=== PATIENT | female | born 1990 | race Caucasian/White ===

== ENCOUNTER 2018-02-02 08:11 | Outpatient (CLI) | payer MEDICAID ==
[2018-02-02 08:44] LABS: BASOPHILS # (AUTO) 0.1 10^3/uL (0.0-0.1); BASOPHILS % (AUTO) 0.8 %; EOSINOPHILS # (AUTO) 0.2 10^3/uL (0.0-0.7); EOSINOPHILS % (AUTO) 2.7 %; HGB - HEMOGLOBIN 14.1 g/dL (12.0-16.0); LYMPHOCYTES # (AUTO) 1.7 10^3/uL (1.5-3.5); LYMPHOCYTES % (AUTO) 24.8 %; MEAN CORPUSCULAR HEMOGLOBIN 30.1 pg (27.0-31.0); MEAN CORPUSCULAR VOLUME 88.8 fL (81.0-99.0); MONOCYTES # (AUTO) 0.7 10^3/uL (0.0-1.0); MONOCYTES % (AUTO) 10.4 %; NEUTROPHILS # (AUTO) 4.3 10^3/uL (1.5-6.6); NEUTROPHILS % (AUTO) 61.3 %; PLT - PLATELET COUNT 189 10^3/uL (130-450); RED BLOOD COUNT 4.68 10^6/uL (4.20-5.40); RED CELL DISTRIBUTION WIDTH 13.3 % (12.0-15.0)
[2018-02-02 09:22] LABS: HB2 TOTAL 15.2 g/dL; HEMOGLOBIN A1C 0.47 g/dL
[2018-02-02 09:30] LABS: CHOLESTEROL 186 mg/dL; GLUCOSE,FASTING 86 mg/dL (70-100); HDL CHOLESTEROL 63 mg/dL; LDL CHOLESTEROL,CALCULATED 105 mg/dL; LDL/HDL RATIO 1.7 (<4.4); VLDL CHOLESTEROL 18 mg/dL
[2018-02-02 09:41] LABS: THYROID STIMULATING HORMONE 2.74 uIU/mL (0.34-5.60)
[2018-02-02 09:43] LABS: FREE T4 (FREE THYROXINE) 0.8 ng/dL (0.58-1.64)
[2018-02-02 09:47] LABS: PROLACTIN 16.56 ng/mL
[2018-02-02 10:09] LABS: FOLLICLE STIMULATING HORMONE 5.79 mIU/mL
== END 2018-02-02 08:12 | disposition home or self-care (01) ==
LOC: LAB 08:11
PROVIDERS: ATTEND Obstetrics & Gynecology
DX: E28.1 Androgen excess (principal); E28.2 Polycystic ovarian syndrome
CPT/HCPCS: 36415; 80061; 81599; 82947; 83001; 83036; 83721; 84143; 84146; 84270; 84402; 84403; 84439; 84443; 84481; 85025

== ENCOUNTER 2018-03-24 15:29 | Outpatient (CLI) | payer MEDICAID ==
[2018-03-24 19:25] LABS: ALBUMIN 4.4 g/dL (3.2-5.5); ALBUMIN/GLOBULIN RATIO 1.3 (1.0-2.2); ALKALINE PHOSPHATASE 74 IU/L (42-121); ALT ALANINE AMINOTRANSFERASE 19 IU/L (10-60); AST ASPARTATE AMINOTRANSFERASE 24 IU/L (10-42); BILIRUBIN,TOTAL 0.5 mg/dL (0.2-1.0); BUN - BLOOD UREA NITROGEN 9 mg/dL (6-20); CALCIUM 9.2 mg/dL (8.5-10.3); CARBON DIOXIDE - CO2 29 mmol/L (21-32); CHLORIDE 100 mmol/L (101-111); CREATININE 0.5 mg/dL (0.4-1.0); GFR - MDRD 147 (>89); GLUCOSE 77 mg/dL (70-100); SODIUM 137 mmol/L (135-145); TOTAL PROTEIN 7.9 g/dL (6.7-8.2)
[2018-03-24 19:30] LABS: BASOPHILS % (AUTO) 0.4 %; EOSINOPHILS # (AUTO) 0.2 10^3/uL (0.0-0.7); EOSINOPHILS % (AUTO) 1.7 %; HGB - HEMOGLOBIN 13.1 g/dL (12.0-16.0); LYMPHOCYTES # (AUTO) 1.6 10^3/uL (1.5-3.5); LYMPHOCYTES % (AUTO) 15.9 %; MEAN CORPUSCULAR HEMOGLOBIN 29.9 pg (27.0-31.0); MEAN CORPUSCULAR HGB CONC 33.5 g/dL (32.0-36.0); MEAN CORPUSCULAR VOLUME 89.4 fL (81.0-99.0); MEAN PLATELET VOLUME 9.1 fL (7.9-10.8); MONOCYTES # (AUTO) 1.3 10^3/uL (0.0-1.0); MONOCYTES % (AUTO) 12.3 %; NEUTROPHILS # (AUTO) 7.1 10^3/uL (1.5-6.6); NEUTROPHILS % (AUTO) 69.7 %; PLT - PLATELET COUNT 214 10^3/uL (130-450); RED BLOOD COUNT 4.39 10^6/uL (4.20-5.40); RED CELL DISTRIBUTION WIDTH 13.2 % (12.0-15.0); WHITE BLOOD COUNT 10.2 x10^3/uL (4.8-10.8)
[2018-03-24 19:41] LABS: THYROID STIMULATING HORMONE 2.99 uIU/mL (0.34-5.60)
[2018-03-24 19:52] LABS: FOLATE 22.96 ng/mL (5.90 - >24.8)
== END 2018-03-24 15:30 | disposition home or self-care (01) ==
LOC: LAB.N 15:29
PROVIDERS: ATTEND Nurse Practitioner
DX: R53.83 Other fatigue (principal); R06.02 Shortness of breath; R19.7 Diarrhea, unspecified; E55.9 Vitamin D deficiency, unspecified
CPT/HCPCS: 36415; 80053; 82306; 82607; 82746; 84443; 85025

== ENCOUNTER 2018-05-11 15:23 | Outpatient (CLI) | payer MEDICAID | END 2018-05-11 23:59 | LOC: LAB.R 15:23 | PROVIDERS: ATTEND Obstetrics & Gynecology | DX: N76.0 Acute vaginitis (principal) | CPT/HCPCS: 87480; 87510; 87660 ==

== ENCOUNTER 2018-07-03 12:39 | Outpatient (CLI) | payer MEDICAID ==
[2018-07-03 20:00] LABS: H. PYLORIS ANTIGEN STL NEGATIVE (Negative)
== END 2018-07-03 12:40 | disposition home or self-care (01) ==
LOC: LAB.N 12:39
PROVIDERS: ATTEND Nurse Practitioner
DX: K29.50 Unspecified chronic gastritis without bleeding (principal); R19.7 Diarrhea, unspecified; K21.9 Gastro-esophageal reflux disease without esophagitis
CPT/HCPCS: 82274; 87045; 87046; 87177; 87209; 87338

== ENCOUNTER 2018-07-31 14:27 | Outpatient (CLI) | payer MEDICAID | END 2018-07-31 14:28 | disposition home or self-care (01) | LOC: LAB.R 14:27 | PROVIDERS: ATTEND Obstetrics & Gynecology | DX: R30.0 Dysuria (principal) | CPT/HCPCS: 87086 ==

== ENCOUNTER 2018-08-29 11:34 | Outpatient (CLI) | payer MEDICAID ==
[2018-08-29 12:35] LABS: HCG UR QUAL NEGATIVE
== END 2018-08-29 11:35 | disposition home or self-care (01) ==
LOC: LAB 11:34
PROVIDERS: ATTEND Obstetrics & Gynecology
DX: Z01.812 Encounter for preprocedural laboratory examination (principal); Z30.2 Encounter for sterilization
CPT/HCPCS: 81025

== ENCOUNTER 2018-08-30 09:15 | Day surgery (SDC) | payer MEDICAID ==
--- NOTE | 2018-08-29 14:50 | PREOP HISTORY & PHYSICAL ---
DATE OF ADMISSION: 08/29/2018 Physician: Sammi Allan DO FACOG IDENTIFICATION: A 27-year-old G0. HISTORY OF PRESENT ILLNESS: Safia presents today to [email or web address] for a preoperative visit. She has been scheduled for an elective laparoscopic bilateral salpingectomy for permanent sterilization. She presents today accompanied by her mother, Abi Dueñas. I have been seeing Safia for quite a while and she, on multiple occasions, has verbalized to me her desire for permanent sterilization. I first met Safia on 07/14/2014. Safia has decided to finally proceed to a permanent sterilization on 03/31/2018. Permanent sterilization consent had been signed. I discussed with Safia the risks, benefits, alternatives, indications, and expectations of a bilateral laparoscopic bilateral salpingectomy. Safia understands their are intrinsic risks of hemorrhage, infection, and damage to surrounding organs. With respect to damage to surrounding organs, this may include but is not limited to an inadvertent laceration, cauterization or ligation of the adjacent intestines, ureters, and bladder. Furthermore, with this surgery, Safia understands that she will no longer be able to have children. Safia knows that there is an intrinsic tubal failure rate of less 1%. Should she feel that she is after the surgery she is to contact me immediately, as she has increased risk for ectopic . Safia understands that there are different forms of contraception available to her, which include but are not limited to control pill, the patch, NuvaRing, Nexplanon, and IUDs. After all of Safia's questions were answered to her satisfaction, she verbalized her desire to proceed with surgery. Consent forms have been signed. Currently, Safia is doing well. Denies any nausea, vomiting, fevers, chills, diarrhea, or constipation. PAST MEDICAL HISTORY 1. In 2006, Shah sarcoma and underwent chemotherapy x 10 months. 2. Depression. 3. Cystic acne. 4. Arthritis. 5. Back pain. PAST SURGICAL HISTORY: Right fibula for Shah sarcoma. ALLERGIES: NO KNOWN DRUG ALLERGIES. MEDICATIONS: Depo-Provera every 3 months. SOCIAL HISTORY: She denies any tobacco or alcohol use, social marijuana. Safia is currently working at [employer] and likes to be involved at the [employer]. PAST OBSTETRIC HISTORY: Nulligravida PAST GYNECOLOGIC HISTORY: She denies abnormal Pap smears or sexually transmitted diseases. Her 01/31/2018 Pap smear was negative, as well as a screen was negative. Safia does have a history of heavy irregular menstrual bleeding. She is currently on Depo-Provera for control of her menses. [facility] records have shown following Pap smears: 01/25/2013 HPV 16 and 18 are negative. Pap smear was low-grade squamous intraepithelial lesion. GC/CT were both negative. On 04/05/2013, cervical biopsy showed no dysplasia. The ECC was no dysplasia. Colposcopy showed a large area of acetowhite area in the cervix. Colposcopy, 01/22/2012, with ECC negative and cervical biopsy with RA 1. A 12/2011 Pap smear was low-grade squamous intraepithelial lesion. Safia does have a history, in 2012, of a self-resolved left breast mass. FAMILY HISTORY: Mother had ovarian cancer at age 35, reportedly stage III unknown type of carcinoma. PHYSICAL EXAMINATION: VITAL SIGNS: Weight is 165 pounds, height is 61 inches, BMI 31, blood pressure 114/76. GENERAL: Safia is a well-developed, well-nourished, female in no apparent distress. She is alert and oriented x3. HEENT: Within normal limits. She does have acne and is hirsute. CARDIOVASCULAR: Regular, no murmurs or rubs. LUNGS: Lungs are clear to auscultation bilaterally. ABDOMEN: Soft, nontender. No peritoneal signs. ASSESSMENT 1. A 27-year-old G0. 2. Desires permanent sterilization. PLAN 1. Safia has signed consent forms for permanent sterilization. 2. Safia is to get a urine hCG today in preparation for tomorrow's surgery. 3. Safia has been counseled to take ibuprofen and acetaminophen as her main form of pain control. She has been given an additional prescription for Vicodin for any breakthrough pain that she may experience. 4. Safia is to call me should she have any worsening fevers, chills, abdominal pain, or vaginal bleeding after surgery. 5. Safia is to see me in 2 weeks at [facility] for a routine postoperative visit. 6. Safia states that she is being worked up for IBS and will shortly receive an EGD. We will get a copy of laparoscopic photos for her GI physician for more information. TD: 08/29/2018 12:46 [email or web address]
[~2018-08-30 09:15] MED LIST: CELECOXIB 100 MG CAPSULE PO ONE
[2018-08-30] MEDS ORDERED: LACTATED RINGERS 1,000 ML IV ONE ×2 (09:38→12:07)
[2018-08-30] MEDS ORDERED: BUPIVACAINE 0.5%-EPI 1:200000 PF 30 ML VIAL ONE (10:17)
--- NOTE | 2018-08-30 10:35 | ANESTHESIA ---
Pre-Anesthesia VS, & Labs - Diagnosis Desires permanent sterilization - Procedure Laparoscopic bilateral salpingectomy Vital Signs: Temp Pulse Resp BP Pulse Ox 36.6 C 110 H 16 121/77 97 08/30/18 09:21 08/30/18 09:21 08/30/18 09:21 08/30/18 09:21 08/30/18 09:21 Height 5 ft 3 in Weight (kg) 73.3 kg - NPO >8 hours - Is Patient ?: No (negative test on 08/29/18) - Lab Results Lab results reviewed: Yes Home Medications and Allergies Home Medications: Ambulatory Orders Omeprazole 20 mg PO DAILY 08/29/18 busPIRone [Buspar] 10 mg PO BID 08/29/18 hydrOXYzine HCl [Hydroxyzine HCl] 2.5 DAILY PM PRN 08/30/18 Omeprazole 20 mg PO DAILY 08/29/18 busPIRone [Buspar] 10 mg PO BID 08/29/18 hydrOXYzine HCl [Hydroxyzine HCl] 2.5 DAILY PM PRN 08/30/18 Allergies/Adverse Reactions: Allergies Allergy/AdvReac Type Severity Reaction Status Date / Time drospirenone Allergy Unknown Verified 08/29/18 11:48 [From Gavi (28)] ethinyl estradiol Allergy Unknown Verified 08/29/18 11:48 [From Gavi (28)] lorazepam [From Ativan] Allergy Unknown Verified 08/29/18 11:48 milk Allergy Unknown Verified 08/29/18 11:48 wheat AdvReac Unknown Verified 08/29/18 11:48 Anes History & Medical History - Anesthetic History Anesthesia Complications: reports: No previous complications Family history of Anesthesia Complications: Denies Family history of Malignant Hyperthermia: Denies - Medical History Cardiovascular: reports: None Pulmonary: reports: None Gastrointestinal: reports: GERD, Chronic diarrhea, Chronic constipation Urinary: reports: None Neuro: reports: None Musculoskeletal: reports: Other (History of Shah sarcoma) Endocrine/Autoimmune: reports: None Blood Disorders: reports: None Skin: reports: None Smoking Status: Never smoker Psychosocial: reports: Depression, Anxiety, Cannabis - Surgical History Eyes Ears Nose Throat (EENT): Other Orthopedic: Other (Left leg) Exam General: Alert, Oriented x3, Cooperative, No acute distress Dental: WNL Mouth Openin Fingerbreadth Mallampati classification: I Thyromental Distance: 4-6 cm Respiratory: Lungs clear, Normal breath sounds, No respiratory distress, No accessory muscle use Cardiovascular: Regular rate, Normal S1, Normal S2, No murmurs Mental/Cognitive Status: Alert/Oriented X3, Normal for patient Plan Anesthesia Type: General Consent for Procedure(s) Verified and Reviewed: Yes Code Status: Attempt Resuscitation ASA classification: 2-Mild systemic disease Is this case an emergency?: No
[2018-08-30] MEDS ORDERED: BUPIVACAINE 0.5%-EPI 1:200000 PF 30 ML VIAL SUBQ ONE ×2 (10:52)
[2018-08-30] MEDS ORDERED: KETOROLAC 30 MG/ML VIAL IVP ONE (11:15)
[2018-08-30] MEDS ORDERED: ROCURONIUM 50 MG/5 ML VIAL IVP ONE (11:15)
[2018-08-30] MEDS ORDERED: MIDAZOLAM 2 MG/2 ML VIAL IVP ONE (11:15)
[2018-08-30] MEDS ORDERED: fentaNYL 100 MCG/2 ML VIAL IVP ONE (11:15)
[2018-08-30] MEDS ORDERED: NEOSTIGMINE 1 MG/1 ML 10 ML MDV IVP ONE (11:15)
[2018-08-30] MEDS ORDERED: PROPOFOL 200 MG/20 ML VIAL IVP ONE (11:15)
[2018-08-30] MEDS ORDERED: GLYCOPYRROLATE 1 MG/5 ML VIAL IVP ONE (11:15)
[2018-08-30] MEDS ORDERED: DEXAMETHASONE 4 MG/ML VIAL IVP ONE (11:15)
[2018-08-30] MEDS ORDERED: PHENYLEPHRINE 50 MG/5 ML VIAL IV ONE (11:15)
[2018-08-30] MEDS ORDERED: LIDOCAINE-MPF 2% 5 ML VIAL IM ONE (11:15)
[2018-08-30] MEDS ORDERED: ONDANSETRON 4 MG/2 ML VIAL IVP ONE (11:15)
--- NOTE | 2018-08-30 12:15 | OPERATIVE REPORT ---
Operative Report - Other Other Information/Narrative: Date of Operation: 08/30/2018 Surgeon: Sammi Allan DO FACOG Pharmaceutical Laboratory Technician: None Ruby Developer: Asher Leigh CRNA Anesthesia: GET Pre-Op Dx: 1. 27 yo G0 2. Desired permanent sterilization Post-Op Dx: 1. 27 yo G0 2. Desired permanent sterilization 3. Endometriosis Procedure: 1. Laparoscopic bilateral salpingectomy 3. Excisional biopsy of posterior cul-de-sac peritoneum Findings: 1. Normal uterus, fallopian tubes and ovaries 2. Endometriotic implants in the posterior cul-de-sac 3. Normal liver edge, appendix. Specimens: 1. Bilateral fallopian tubes 2. Peritoneal biopsies x 2 Drains: None EBL: 3 mL Complications: None OP Note Dictation #: [id number]
[2018-08-30] MEDS ORDERED: ONDANSETRON 4 MG/2 ML VIAL ONE (12:16)
[2018-08-30] MEDS ORDERED: HYDROcod/ACETAM 5/325 MG TABLET PO PRN (12:26)
[2018-08-30] MEDS ORDERED: LORazepam 2 MG/ML VIAL IVP PRN (12:26)
[2018-08-30] MEDS ORDERED: ONDANSETRON 4 MG/2 ML VIAL IVP PRN (12:26)
[2018-08-30] MEDS: HYDROmorphone 0.5 MG/0.5 ML SYRINGE IVP PRN ×2 (12:38→12:44)
[2018-08-30] MEDS ORDERED: HYDROcod/ACETAM 5/325 MG TABLET ONE (13:19)
--- NOTE | 2018-08-30 13:33 | OPERATIVE REPORT ---
DATE OF OPERATION: 08/30/2018 SURGEON: Sammi Allan DO, OVIDIO EXECUTIVE STEWARD: None. AUTO CLUTCH SPECIALIST: Asher Leigh CRNA. ANESTHESIA: General endotracheal tube. PREOPERATIVE DIAGNOSES: 1. A 19-year-old G0. 2. Desired permanent sterilization. POSTOPERATIVE DIAGNOSES: 1. A 27-year-old G0. 2. Desired permanent sterilization. 3. Endometriosis. PROCEDURES: 1. Laparoscopic bilateral salpingectomy. 2. Excisional biopsy of posterior cul-de-sac peritoneum. FINDINGS: 1. Normal uterus, fallopian tubes, and ovaries. 2. Endometriotic implants in the posterior cul-de-sac. SPECIMENS: 1. Bilateral fallopian tubes. 2. Peritoneal biopsies x2. DRAINS: None. ESTIMATED BLOOD LOSS: 3 mL COMPLICATIONS: None. BRIEF HISTORY: This is a patient of [facility] who has verbalized to me her desire for permanent sterilization. I discussed with patient the risks, benefits, alternatives, and indications and expectations of a laparoscopic bilateral salpingectomy. Included in our discussions were the risk of infection, hemorrhage and damage to surrounding organs. With respect to damage to surrounding organs, this may include, but is not limited to an inadvertent laceration, cauterization or ligation of the adjacent intestines, bladder and ureters. Furthermore, with the surgery patient understands that she will no longer be able have children. She knows other options of control available to her including control pills, the patch, Depo-Provera, the NuvaRing, and the copper and hormone-based IUDs. Patient understands that there is an intrinsic tubal failure rate of less than 1%. After all questions were answered to her satisfaction, she verbalized her desire to proceed with surgery. Consent forms have been signed. OPERATION IN DETAIL: Patient was identified and consented, taken to the operating room where IV access was already in place. She was then given satisfactory general endotracheal tube anesthesia. Sequential compression devices were placed on lower extremities and turned on prior to induction of anesthesia. Patient was then prepped and draped in normal sterile fashion in the supine position. Her bladder was drained with In and Out catheter. A timeout was performed, which correctly identified the patient, site of the procedures and the procedures themselves. Three laparoscopic port sites were first identified in the lower abdomen. They were all 5 mm length. One in the subumbilical fold and the other two in the right and left lower quadrants. With respect to the lower quadrant incisions these were found by identifying the anterior superior iliac spine and then moving 2 fingerbreadths superior and then medially to those respective sides. All 3 sides were injected with 0.5% lidocaine with epinephrine. A total of 20 mL were used through the entire case. These incisions were redosed at the termination of the case. Stab incisions were made in then the laparoscopic port sites. A 5 mm Visiport trocar was then placed into the abdomen and under direct visualization of the camera. No trauma to intra-abdominal organs was noted. CO2 gas was then used to insufflate the abdomen. A satisfactory pneumoperitoneum was identified. Two other port sites were then placed under direct visualization of the camera into the abdomen. Again, no trauma to intra- abdominal organs was noted. Survey of the pelvis and abdomen revealed a normal liver edge. The appendix was also seen and was within normal limits. Inspection of the uterus, fallopian tubes, and ovaries revealed normal anatomy. There was, however, findings of endometriosis. There was one large area in the posterior cul-de-sac on the left side of the pelvis. A second area of 2-3 areas in the endometriosis and also in the posterior cul-de-sac closer to the right uterosacral ligament, but more on the right aspect of the cul-de-sac. Attention was then turned towards the right fallopian tube. The right tube was identified and followed to the fimbriated end. The fallopian tube was then excised with the LigaSure. Hemostasis was noted. In similar fashion, the left fallopian tube was identified and then excised using the LigaSure. Hemostasis was noted as well. At this point in time, I decided to excise the endometriosis given that patient has a history of chronic pelvic pain. The peritoneum was lifted up and then sharply excised. Hemostasis was noted at the 2 areas of excisional biopsy. At this point in time the procedure had been completed. All instruments were removed from the abdomen and the CO2 gas was allowed to egress into the atmosphere; thus, relieving the pneumoperitoneum. All 3 trocar sites were then closed with a single subcutaneous stitch of 4-0 Monocryl. Dermabond was then placed on top of the incisions. All sponge, lap and needle counts were correct x 2 as per RN report. Patient tolerated the procedure well and taken back to recovery room in stable condition. She will be discharged to home later today and after postoperative criteria are met. TD: 08/30/2018 12:38 YOGESH
[2018-08-30 13:38] VITALS: BP 104/72
== END 2018-08-30 09:16 | disposition home or self-care (01) ==
LOC: SDS 09:15
PROVIDERS: ATTEND Obstetrics & Gynecology
PROC: 0UBF8ZZ Excision of Cul-de-sac, Via Natural or Artificial Opening Endoscopic (ICD-10-PCS; 2018-08-30)
PROC: 0UB74ZZ Excision of Bilateral Fallopian Tubes, Percutaneous Endoscopic Approach (ICD-10-PCS; principal; 2018-08-30 10:15)
DX: Z30.2 Encounter for sterilization (principal); N80.3 Endometriosis of pelvic peritoneum
CPT/HCPCS: 58661; 58662; A9270; J1170; J7120

== ENCOUNTER 2019-02-13 08:00 | Outpatient (CLI) | payer MEDICAID | END 2019-02-13 23:59 | disposition home or self-care (01) | LOC: LAB.R 08:00 | PROVIDERS: ATTEND Nurse Practitioner Obstetrics & Gynecology | DX: N76.0 Acute vaginitis (principal) | CPT/HCPCS: 87480; 87510; 87660 ==

== ENCOUNTER 2019-10-04 10:49 | Outpatient (CLI) | payer MEDICAID ==
--- NOTE | 2019-10-04 21:49 | Ultrasound Report ---
Reason: ENDOMETRIOSIS, PELVIC PAIN Procedure Date: 10/04/2019 Accession Number: [id number] / [id number] Procedure: US - Pelvic w/Transvaginal CPT Code: Final Report FULL RESULT: EXAM: PELVIC ULTRASOUND EXAM DATE: 10/04/2019 11:07 AM. CLINICAL HISTORY: ENDOMETRIOSIS, PELVIC PAIN. COMPARISON: Previous exam of 02/12/2008. TECHNIQUE: Realtime transabdominal pelvic scan performed to identify the uterus and adnexa and as an overview of other pelvic structures, followed by transvaginal scan to provide greater detail of the uterus and adnexa, with static image documentation. FINDINGS: Uterus: 8.2 x 3.1 x 4.1 cm, volume 54.5 cc. Anteverted position. Normal overall size and echotexture. Masses: None. Endometrium: 9.3 mm. Normal. Cervix: Unremarkable. Right Ovary: 2.1 x 2.0 x 3.1 cm, volume 6.8 cc. Normal echotexture and blood flow. Left Ovary: 1.7 x 1.7 x 1.6 cm, volume 2.4 cc. Normal echotexture and blood flow. Free Fluid: None. Other: None. IMPRESSION: Grossly unremarkable exam. RADIA
== END 2019-10-04 10:50 | disposition home or self-care (01) ==
LOC: DI 10:49
PROVIDERS: ATTEND Obstetrics & Gynecology
DX: R10.2 Pelvic and perineal pain (principal)
CPT/HCPCS: 76830; 76856

== ENCOUNTER 2020-01-29 10:57 | Outpatient (CLI) | payer MEDICAID ==
[2020-01-29 11:12] LABS: BASOPHILS % (AUTO) 0.4 %; EOSINOPHILS # (AUTO) 0.1 10^3/uL (0.0-0.7); EOSINOPHILS % (AUTO) 2.5 %; HGB - HEMOGLOBIN 14.8 g/dL (12.0-16.0); LYMPHOCYTES # (AUTO) 1.4 10^3/uL (1.5-3.5); LYMPHOCYTES % (AUTO) 25.2 %; MEAN CORPUSCULAR HEMOGLOBIN 30.6 pg (27.0-31.0); MEAN CORPUSCULAR HGB CONC 34.2 g/dL (32.0-36.0); MEAN CORPUSCULAR VOLUME 89.5 fL (81.0-99.0); MEAN PLATELET VOLUME 10.2 fL (7.9-10.8); MONOCYTES # (AUTO) 0.6 10^3/uL (0.0-1.0); MONOCYTES % (AUTO) 10.5 %; NEUTROPHILS # (AUTO) 3.5 10^3/uL (1.5-6.6); PLT - PLATELET COUNT 213 10^3/uL (130-450); RED BLOOD COUNT 4.84 10^6/uL (4.20-5.40); RED CELL DISTRIBUTION WIDTH 12.4 % (12.0-15.0); WHITE BLOOD COUNT 5.7 x10^3/uL (4.8-10.8)
== END 2020-01-29 10:58 | disposition home or self-care (01) ==
LOC: LAB 10:57
PROVIDERS: ATTEND Obstetrics & Gynecology
DX: Z01.812 Encounter for preprocedural laboratory examination (principal); N80.9 Endometriosis, unspecified; R10.2 Pelvic and perineal pain; Z80.41 Family history of malignant neoplasm of ovary
CPT/HCPCS: 36415; 85025

== ENCOUNTER 2020-04-28 11:23 | Outpatient (CLI) | payer MEDICAID ==
[2020-04-28 11:37] LABS: BASOPHILS # (AUTO) 0.1 10^3/uL (0.0-0.1); BASOPHILS % (AUTO) 0.7 %; EOSINOPHILS # (AUTO) 0.2 10^3/uL (0.0-0.7); EOSINOPHILS % (AUTO) 3.1 %; HGB - HEMOGLOBIN 14.8 g/dL (12.0-16.0); LYMPHOCYTES # (AUTO) 2.1 10^3/uL (1.5-3.5); LYMPHOCYTES % (AUTO) 28.3 %; MEAN CORPUSCULAR HEMOGLOBIN 30.5 pg (27.0-31.0); MEAN CORPUSCULAR HGB CONC 34.3 g/dL (32.0-36.0); MEAN CORPUSCULAR VOLUME 88.9 fL (81.0-99.0); MEAN PLATELET VOLUME 10.8 fL (7.9-10.8); MONOCYTES # (AUTO) 0.7 10^3/uL (0.0-1.0); MONOCYTES % (AUTO) 9.6 %; NEUTROPHILS # (AUTO) 4.3 10^3/uL (1.5-6.6); PLT - PLATELET COUNT 248 10^3/uL (130-450); RED BLOOD COUNT 4.86 10^6/uL (4.20-5.40); RED CELL DISTRIBUTION WIDTH 12.2 % (12.0-15.0); WHITE BLOOD COUNT 7.4 x10^3/uL (4.8-10.8)
== END 2020-04-28 11:24 | disposition home or self-care (01) ==
LOC: LAB 11:23
PROVIDERS: ATTEND Obstetrics & Gynecology
DX: Z01.812 Encounter for preprocedural laboratory examination (principal); Z20.828 Contact with and (suspected) exposure to other viral communicable diseases; N80.9 Endometriosis, unspecified; R10.2 Pelvic and perineal pain; Z80.41 Family history of malignant neoplasm of ovary
CPT/HCPCS: 36415; 81599; 85025

== ENCOUNTER 2020-04-30 17:16 | Day surgery (SDC) | payer MEDICAID ==
[2020-04-30 11:12] LABS: HCG UR QUAL NEGATIVE
--- NOTE | 2020-04-30 11:29 | ANESTHESIA ---
Pre-Anesthesia VS, & Labs - Diagnosis endometriosis, pelvic pain, family history of ovarian cancer in first degree relative. - Procedure total laparoscopic hysterectomy Vital Signs: Temp Pulse Resp BP Pulse Ox 36.6 C 110 H 18 140/93 H 97 04/30/20 10:55 04/30/20 10:55 04/30/20 10:55 04/30/20 10:55 04/30/20 10:55 Height 5 ft 3.5 in Weight (kg) 95 kg - NPO >8 hours - Is Patient ?: No Home Medications and Allergies Omeprazole 20 mg PO DAILY PRN 08/29/18 Albuterol Sulfate [Proair Hfa Inhaler] 1 - 2 puffs INH Q4H PRN 01/29/20 Spironolactone 50 mg PO DAILY 01/29/20 Aspirin [Aspirin EC] 325 mg PO ONCE PRN 04/28/20 Multivitamin 1 each PO DAILY 04/28/20 Sertraline [Zoloft] 50 mg PO DAILY 04/28/20 Allergies/Adverse Reactions: Allergies Allergy/AdvReac Type Severity Reaction Status Date / Time drospirenone Allergy Unknown Verified 08/29/18 11:48 [From Gavi (28)] ethinyl estradiol Allergy Unknown Verified 04/30/20 10:59 [From Gavi (28)] lorazepam [From Ativan] Allergy Unknown Verified 08/29/18 11:48 milk Allergy Unknown Verified 08/29/18 11:48 wheat AdvReac Unknown Verified 08/29/18 11:48 Anes History & Medical History - Medical History Cardiovascular: reports: None Pulmonary: reports: None Gastrointestinal: reports: GERD (controlled with medication), Ulcers, Other Urinary: reports: None Neuro: reports: None Musculoskeletal: reports: Chronic back pain Endocrine/Autoimmune: reports: None Blood Disorders: reports: None Skin: reports: None Smoking Status: Never smoker Psychosocial: reports: Depression, Anxiety, Other (PTSD) Other Past Medical History: History of mina sarcoma - Surgical History Gynecologic: Other (bilateral salpingectomy and excision of endometriosis) Orthopedic: Other (fibula excision for mina sarcoma) Exam General: Alert, Oriented x3, Cooperative, No acute distress Dental: WNL Mouth Openin Fingerbreadth Neck Mobility: Normal Mallampati classification: I Thyromental Distance: 4-6 cm Respiratory: Lungs clear, Normal breath sounds, No respiratory distress, No accessory muscle use Cardiovascular: Regular rate, Normal S1, Normal S2, No murmurs Mental/Cognitive Status: Alert/Oriented X3, Normal for patient Plan Anesthesia Type: General Consent for Procedure(s) Verified and Reviewed: Yes Code Status: Attempt Resuscitation ASA classification: 2-Mild systemic disease Is this case an emergency?: No
[2020-04-30] MEDS: HYDROmorphone 1 MG/ML CARPUJECT ONE ×2 (16:35→16:40)
[~2020-04-30 17:16] MED LIST changes: +ACETAMINOPHEN 1,000 MG/100 ML 100 ML IV ONE; +BUPIVACAINE 0.25% PF 30 ML VIAL ONE; +BUPIVACAINE 0.25% PF 30 ML VIAL SUBQ ONE; +CEFAZOLIN SODIUM IN 0.9 % NACL 2 GM/100 ML BAG IV ONE; +DEXAMETHASONE 4 MG/ML VIAL IVP ONE; +GABAPENTIN 400 MG CAPSULE ONE; +GLYCOPYRROLATE 1 MG/5 ML VIAL IVP ONE; +KETAMINE 500 MG/10 ML VIAL IVP ONE; +KETOROLAC 30 MG/ML VIAL IVP ONE; +LACTATED RINGERS 1,000 ML IV ONE; +LIDOCAINE-MPF 2% 5 ML VIAL IM ONE; +METHYLENE BLUE 0.5% 50 MG/10 ML AMPULE IR ONE; +METHYLENE BLUE 0.5% 50 MG/10 ML AMPULE ONE; +MIDAZOLAM 2 MG/2 ML VIAL IVP ONE; +NEOSTIGMINE 1 MG/1 ML 10 ML MDV IVP ONE; +ONDANSETRON 4 MG/2 ML VIAL IVP ONE; +ONDANSETRON 4 MG/2 ML VIAL IVP PRN; +ONDANSETRON ODT 4 MG TABLET TL PRN; +PHENAZOPYRIDINE 100 MG TABLET PO ONE; +PROPOFOL 200 MG/20 ML VIAL IVP ONE; +ROCURONIUM 50 MG/5 ML VIAL IVP ONE; +SCOPOLAMINE PATCH TOP PRN; +fentaNYL 100 MCG/2 ML VIAL IVP ONE
[2020-04-30] MEDS ORDERED: HYDROmorphone 0.5 MG/0.5 ML SYRINGE IVP PRN (17:20)
--- NOTE | 2020-04-30 17:31 | OPERATIVE REPORT ---
Operative Report - General Procedure Date: 04/30/20 Planned Procedure: Total laparoscopic hysterectomy vs laparoscopic assisted vaginal hysterectomy and cystoscopy. Pre-Op Diagnosis: Chronic pelvic pain. Endometriosis with failed medical management Procedure Performed: Removal of Mirena IUD Total laparoscopic hysterectomy Cystoscopy Post Op Diagnosis: Same - Procedure Note Primary Surgeon: Lynn Foley MD Secondary Surgeon: Ritesh Chamberlain MD Anesthesia Provider: Patel Smith CRNA Anesthesia Technique: General ET tube Pathology: Uterus with cervix. IV Fluids (mL): 1,400 Estimated Blood Loss (mL): 10 Urine Output (mL): 200 Indications: Patient is a 29-year-old G0 with endometriosis with failed medical management and chronic pelvic pain. Patient presents today for definitive management with hysterectomy. She has had a Mirena IUD in place and her endometriosis remains problematic. She has no desire for childbearing and has already undergone a bilateral salpingectomy. Risk/benefits/alternatives reviewed and written informed consent was again confirmed. Findings: Normal-appearing uterus with bilateral fallopian tube surgically absent. N ormal-appearing appendix, gallbladder, liver edge. Bladder was thickly adherent to the lower uterine segment and small endometrial implant in the posterior cul-de-sac. Otherwise minimal endometriotic disease. Cystoscopy revealed intact bladder absent of any suture or surgical trauma and bilateral ureteral jets were noted post hysterectomy. Complications: none - Other Other Information/Narrative: Risks benefits and alternatives of the procedure were reviewed. Consent was again confirmed. Patient was brought to the operating room and underwent general anesthesia. She was placed in dorsal lithotomy position with legs resting in yellowfin stirrups. SCDs were in place and activated. Cefazolin 2 g IV was administered prior to start of procedure. She was prepped and draped in the usual sterile fashion. Surgical timeout was performed. Bimanual exam was performed. Sterile speculum was placed and Vcare uterine manipulator was placed, confirming that the inner cup was flush with the vaginal fornices. The base of the umbilicus was anesthetized with intradermal injection of 0.25% Marcaine. A 5 mm skin incision was made with a scalpel. A 5 mm blunt trocar was inserted under direct visualization using Bdayiport. Once the port was confirmed to be placed intraperitoneally, the abdomen was insufflated to 15 mmHg with CO2 gas Exploration of the abdomen and pelvis was confirmed that no injury was sustained with placement of the trocar. Two additional 5 mm ports were placed in the right and left lower quadrants, taking care to avoid the epigastric arteries, while under direct visualization via laparoscopic guidance. The abdomen was explored with the laparoscope, with findings as noted. The Fallopian tubes were noted to be surgically absent. The Round ligament on the left aspect of the uterus was sealed/transected/and divided. The uterine ovarian ligament was transected using the LigaSure bipolar device. A bladder flap was mobilized by dividing the round ligaments using the bipolar cutting forceps, and the peritoneum on the vesicouterine fold was incised to mobilize the bladder. Once the colpotomy ring was skeletonized and in position, the uterine arteries were sealed using the bipolar forceps at the level of the colpotomy ring. This was repeated on the right aspect of the uterus in the same manner. Because of the thick adhesions between the bladder and the lower uterine segment, the bladder was backfilled with 400 cc of methylene blue stained normal saline to better delineate the margins of the bladder. The bladder dissection was performed Over the colpotomy ring with the methylene blue dye infused. No spillage of methylene blue stained fluid was noted in the pelvis or abdomen. The bladder was again drained of the methylene blue stained normal saline. Colpotomy was performed using monopolar hook, resulting in separation of the uterus. The uterus was then delivered through the vagina. Attention was then turned to the vaginal cuff closure. The right lower quadrant port was removed and the incision was extended to accommodate a 10 mm port. The 5 mm port was replaced with a 10 mm port. V-Loc suture was passed throught the port. The vaginal cuff was closed with a running suture using V-Loc suture. Closure of the cuff was airtight and abdominal insufflation was maintained post closure. Good hemostasis was noted. We then turned our attention to the cystoscopic portion of the procedure. Renner catheter was removed and the cystoscope was inserted. Bladder was instilled with NS. A survey of the bladder showed no trauma or presence of suture in the bladder topography. Patient had been pretreated with pyridium. Vigorous ureteral jets were observed bilaterally. Cystoscope was removed after bladder was drained. Renner catheter was replaced We again returned to the abdominal surgical field after removing outer gloves. The abdomen remained insufflated. The vaginal cuff was visualized internally and noted to have good hemostasis. Toby Grace device was placed in the 10 mm port site, which was then closed under direct visualization. The abdomen was partially desufflated. Pedicles were observed under decreased pressure and good hemostasis was again confirmed. Abdomen was then completely desufflated. All instruments were removed from the abdomen. Skin was closed with interrupted subcuticular stitches using 4-0 Monocryl. Dermabond was applied over the suture sites. The final sponge needle and instrument counts were correct at completion of the procedure patient was awakened taken to the postanesthesia care unit in stable condition. Dr. Chamberlain assisted with suturing, completion of his side of the hysterectomy, cystoscopy.
[2020-04-30] MEDS: oxyCODONE 5 MG TABLET PO PRN ×2 (17:48→22:07)
[2020-04-30] MEDS: LACTATED RINGERS 1,000 ML IV SCH (17:49)
[2020-04-30] MEDS ORDERED: ALBUTEROL NEB 2.5 MG/3 ML INH PRN (18:23)
--- NOTE | 2020-04-30 20:13 | PROVIDER PROGRESS NOTE ---
Subjective - Prog Note Date Prog Note Date: 04/30/20 Prog Note Time: 20:11 - Subjective Subjective: Pain well managed. Had some irritation wiht Renner immediately postop but has not gotten used to it. Minimal bleeding. Tolerating small volume po. Objective - Vital Signs/Intake & Output Reviewed Vital Signs: Yes Vital Signs: Vital Signs x48h Temp Pulse Pulse Resp BP BP Pulse Ox 04/30/20 19:17 98.1 F 103 H 24 115/69 96 04/30/20 18:20 99.1 F 106 H 16 97 04/30/20 18:17 98.6 F 102 H 16 119/72 96 04/30/20 17:47 99.1 F 106 H 16 111/76 97 04/30/20 17:17 98 14 117/78 99 04/30/20 16:55 98.6 F 98 15 126/82 H 100 04/30/20 16:50 99.0 F 98 14 128/82 H 99 04/30/20 16:45 99.0 F 100 18 130/88 H 98 04/30/20 16:40 99.0 F 103 H 15 129/85 H 99 04/30/20 16:35 98.6 F 103 H 13 122/87 H 98 04/30/20 16:30 98.6 F 109 H 14 125/79 100 04/30/20 16:25 98.4 F 115 H 14 125/82 H 100 04/30/20 16:20 98.6 F 107 H 16 121/73 98 Intake & Output: Intake & Output 04/27/20 04/28/20 04/29/20 04/30/20 23:59 23:59 23:59 23:59 Intake Total 1800 Output Total 340 Balance 1460 - Objective General Appearance: positive: No acute distress Respiratory: positive: No respiratory distress Cardiovascular: positive: Other (RR- mild tachycardia) Abdomen: positive: Other (Soft and mildly distended, appropriately tender. Port sites CDI) Skin: positive: Color nml Extremities: positive: Non-tender, Other (SCDs in place and activated) Neurologic/Psychiatric: positive: Oriented x3 Comments/Other: peripad with scant discharge - Lab Results Other Labs: Lab Results x24hrs 04/30/20 Range/Units 11:04 Ur Specific [place] 1.015 (1.002-1.030) Urine HCG, Qual NEGATIVE Assessment/Plan - Problem List (1) S/P hysterectomy Impression: POD#0 s/p TLH/cysto Reviewed operative findings and reviewed high degree of bladder manipulation Recommended keeping Renner in place although willing to remove is patient is ok with risk of replacement Patient reports that discomfort has subsided and she is ok wiht overnight Renner use Tolerating po Pain well managed Encourage ambulation Will DC Renner in am when ambulatory Anticipate DC home in am
[2020-04-30] MEDS: ACETAMINOPHEN 500 MG TABLET PO SCH (20:24)
[2020-04-30] MEDS: DOCUSATE SODIUM 100 MG CAPSULE PO SCH (20:24)
[2020-04-30] MEDS: KETOROLAC 30 MG/ML VIAL IVP SCH (22:06)
[2020-04-30] MEDS: SIMETHICONE CHEW 80 MG TABLET PO SCH (22:07)
[2020-05-01] MEDS: oxyCODONE 5 MG TABLET PO PRN ×3 (01:50→16:00)
[2020-05-01 05:52] LABS: BASOPHILS % (AUTO) 0.1 %; HGB - HEMOGLOBIN 12.5 g/dL (12.0-16.0); LYMPHOCYTES % (AUTO) 9.6 %; MEAN CORPUSCULAR HEMOGLOBIN 29.6 pg (27.0-31.0); MEAN CORPUSCULAR HGB CONC 33.2 g/dL (32.0-36.0); MEAN CORPUSCULAR VOLUME 89.1 fL (81.0-99.0); MEAN PLATELET VOLUME 10.8 fL (7.9-10.8); MONOCYTES # (AUTO) 0.8 10^3/uL (0.0-1.0); MONOCYTES % (AUTO) 7.3 %; NEUTROPHILS # (AUTO) 8.8 10^3/uL (1.5-6.6); NEUTROPHILS % (AUTO) 82.6 %; PLT - PLATELET COUNT 225 10^3/uL (130-450); RED BLOOD COUNT 4.23 10^6/uL (4.20-5.40); RED CELL DISTRIBUTION WIDTH 12.4 % (12.0-15.0); WHITE BLOOD COUNT 10.6 x10^3/uL (4.8-10.8)
[2020-05-01] MEDS: ACETAMINOPHEN 500 MG TABLET PO SCH ×2 (06:05→13:55)
[2020-05-01] MEDS: KETOROLAC 30 MG/ML VIAL IVP SCH ×2 (06:05→12:39)
[2020-05-01] MEDS: SIMETHICONE CHEW 80 MG TABLET PO SCH ×2 (06:10→14:00)
[2020-05-01] MEDS: LACTATED RINGERS 1,000 ML IV SCH (06:12)
[2020-05-01] MEDS: DOCUSATE SODIUM 100 MG CAPSULE PO SCH (08:27)
[2020-05-01] MEDS ORDERED: ENOXAPARIN 40 MG/0.4 ML SYRINGE SUBQ SCH (09:00)
--- NOTE | 2020-05-01 12:55 | PROVIDER PROGRESS NOTE ---
Subjective - Prog Note Date Prog Note Date: 05/01/20 Prog Note Time: 11:00 - Subjective Subjective: Patient is up and ambulating, tolerating po. Pain is well managed with pain medications. Renner removed at 8 am, no yet voided. Objective - Vital Signs/Intake & Output Reviewed Vital Signs: Yes Vital Signs: Vital Signs x48h Temp Pulse Pulse Resp BP Pulse Ox 05/01/20 08:43 99.0 F 96 18 120/72 97 05/01/20 07:43 83 16 05/01/20 06:13 99.0 F 97 16 115/66 93 Intake & Output: Intake & Output 04/28/20 04/29/20 04/30/20 05/01/20 23:59 23:59 23:59 23:59 Intake Total 1800 1000 Output Total 615 1650 Balance 1185 -650 - Objective General Appearance: positive: No acute distress Respiratory: positive: No respiratory distress Cardiovascular: positive: Regular rate & rhythm Abdomen: positive: Non-tender, Other (POrt sites CDI. Umbilical dressing removed CDI. NT/ND/S) Skin: positive: Color nml Extremities: positive: Non-tender, No pedal edema Neurologic/Psychiatric: positive: Oriented x3 - Lab Results Fish Bones: 05/01/20 05:25 Other Labs: Lab Results x24hrs 05/01/20 Range/Units 05:25 WBC 10.6 (4.8-10.8) x10^3/uL RBC 4.23 (4.20-5.40) 10^6/uL Hgb 12.5 (12.0-16.0) g/dL Hct 37.7 (37.0-47.0) % MCV 89.1 (81.0-99.0) fL MCH 29.6 (27.0-31.0) pg MCHC 33.2 (32.0-36.0) g/dL RDW 12.4 (12.0-15.0) % Plt Count 225 (130-450) 10^3/uL MPV 10.8 (7.9-10.8) fL Neut # (Auto) 8.8 H (1.5-6.6) 10^3/uL Lymph # (Auto) 1.0 L (1.5-3.5) 10^3/uL Dickinson # (Auto) 0.8 (0.0-1.0) 10^3/uL Eos # (Auto) 0.0 (0.0-0.7) 10^3/uL Baso # (Auto) 0.0 (0.0-0.1) 10^3/uL Absolute Nucleated RBC 0.00 x10^3/uL Nucleated RBC % 0.0 /100WBC Assessment/Plan - Problem List (1) S/P hysterectomy Impression: POD#1 s/p TLH/cystoscopy Doing well but has yet to void Bladder scan performed and less than 100 cc accumulated in less than 3 hours UOP was 1650/8H prior to Renner removal OK to discharge once patient voids and has less than 50% PVR
[2020-05-01 16:12] VITALS: BP 129/78
== END 2020-05-01 16:15 | disposition home or self-care (01) ==
LOC: SDS 17:16 → MS2 17:16 → SDS 17:35 → MS2 17:35 → SDS 05-01 16:15
PROVIDERS: ATTEND Obstetrics & Gynecology
PROC: 0UT94ZZ Resection of Uterus, Percutaneous Endoscopic Approach (ICD-10-PCS; principal; 2020-04-30 11:45)
DX: N80.9 Endometriosis, unspecified (principal); R10.2 Pelvic and perineal pain; Z80.41 Family history of malignant neoplasm of ovary; Z85.830 Personal history of malignant neoplasm of bone; Z90.79 Acquired absence of other genital organ(s)
CPT/HCPCS: 36415; 58570; 81025; 85025; A9270; J0131; J0690; J1170; J1650; J7120

== ENCOUNTER 2020-07-07 11:59 | Outpatient (CLI) | payer MEDICAID ==
[2020-07-07 18:27] LABS: BASOPHILS % (AUTO) 0.6 %; EOSINOPHILS # (AUTO) 0.1 10^3/uL (0.0-0.7); EOSINOPHILS % (AUTO) 1.6 %; HGB - HEMOGLOBIN 14.3 g/dL (12.0-16.0); LYMPHOCYTES # (AUTO) 1.5 10^3/uL (1.5-3.5); LYMPHOCYTES % (AUTO) 23.9 %; MEAN CORPUSCULAR HEMOGLOBIN 30.2 pg (27.0-31.0); MEAN CORPUSCULAR HGB CONC 32.4 g/dL (32.0-36.0); MEAN CORPUSCULAR VOLUME 93.2 fL (81.0-99.0); MONOCYTES # (AUTO) 0.6 10^3/uL (0.0-1.0); MONOCYTES % (AUTO) 9.7 %; PLT - PLATELET COUNT 247 10^3/uL (130-450); RED BLOOD COUNT 4.74 10^6/uL (4.20-5.40); RED CELL DISTRIBUTION WIDTH 13.2 % (12.0-15.0); WHITE BLOOD COUNT 6.3 x10^3/uL (4.8-10.8)
[2020-07-07 18:45] LABS: ALBUMIN 4.7 g/dL (3.2-5.5); ALBUMIN/GLOBULIN RATIO 1.4 (1.0-2.2); ALKALINE PHOSPHATASE 75 IU/L (42-121); ALT ALANINE AMINOTRANSFERASE 22 IU/L (10-60); AST ASPARTATE AMINOTRANSFERASE 27 IU/L (10-42); BILIRUBIN,TOTAL 0.6 mg/dL (0.2-1.0); BUN - BLOOD UREA NITROGEN 10 mg/dL (6-20); CARBON DIOXIDE - CO2 29 mmol/L (21-32); CHLORIDE 101 mmol/L (101-111); CHOL/HDL RATIO 4.3 (<4.4); CHOLESTEROL 244 mg/dL; CREATININE 0.9 mg/dL (0.4-1.0); GLUCOSE 82 mg/dL (70-100); HDL CHOLESTEROL 57 mg/dL; LDL CHOLESTEROL,CALCULATED 165 mg/dL; LDL/HDL RATIO 2.9 (<4.4); SODIUM 142 mmol/L (135-145); VLDL CHOLESTEROL 22 mg/dL
[2020-07-07 19:10] LABS: HB2 TOTAL 14.6 g/dL; HEMOGLOBIN A1C 0.47 g/dL; HEMOGLOBIN A1C % 5.1 % (4.6-6.2)
== END 2020-07-07 23:59 | disposition home or self-care (01) ==
LOC: LAB.WCP 11:59
PROVIDERS: ATTEND Physician Assistant
DX: R53.83 Other fatigue (principal); Z83.3 Family history of diabetes mellitus
CPT/HCPCS: 36415; 80053; 80061; 83036; 83721; 84443; 85025

== ENCOUNTER 2020-09-15 11:25 | Outpatient (CLI) | payer MEDICAID ==
[2020-09-15 11:43] LABS: BASOPHILS % (AUTO) 0.4 %; EOSINOPHILS # (AUTO) 0.1 10^3/uL (0.0-0.7); EOSINOPHILS % (AUTO) 1.7 %; HGB - HEMOGLOBIN 14.5 g/dL (12.0-16.0); LYMPHOCYTES # (AUTO) 1.9 10^3/uL (1.5-3.5); LYMPHOCYTES % (AUTO) 25.8 %; MEAN CORPUSCULAR HEMOGLOBIN 30.9 pg (27.0-31.0); MEAN CORPUSCULAR HGB CONC 34.4 g/dL (32.0-36.0); MONOCYTES # (AUTO) 0.6 10^3/uL (0.0-1.0); MONOCYTES % (AUTO) 8.2 %; NEUTROPHILS # (AUTO) 4.6 10^3/uL (1.5-6.6); NEUTROPHILS % (AUTO) 63.6 %; PLT - PLATELET COUNT 240 10^3/uL (130-450); RED BLOOD COUNT 4.69 10^6/uL (4.20-5.40); RED CELL DISTRIBUTION WIDTH 12.3 % (12.0-15.0); WHITE BLOOD COUNT 7.2 x10^3/uL (4.8-10.8)
[2020-09-15 11:51] LABS: ALBUMIN 4.8 g/dL (3.2-5.5); ALBUMIN/GLOBULIN RATIO 1.4 (1.0-2.2); BILIRUBIN,TOTAL 0.2 mg/dL (0.2-1.0); CALCIUM 9.7 mg/dL (8.5-10.3); CREATININE 0.8 mg/dL (0.4-1.0); TOTAL PROTEIN 8.2 g/dL (6.7-8.2)
== END 2020-09-15 11:26 | disposition home or self-care (01) ==
LOC: LAB 11:25
PROVIDERS: ATTEND Registered Nurse
DX: R63.5 Abnormal weight gain (principal); R53.83 Other fatigue; Z83.3 Family history of diabetes mellitus
CPT/HCPCS: 36415; 80053; 84443; 85025

== ENCOUNTER 2021-07-07 13:11 | Outpatient (CLI) | payer MEDICAID ==
[2021-07-07 13:37] LABS: BASOPHILS % (AUTO) 0.5 %; EOSINOPHILS # (AUTO) 0.1 10^3/uL (0.0-0.7); EOSINOPHILS % (AUTO) 0.8 %; HCT - HEMATOCRIT 40.1 % (37.0-47.0); HGB - HEMOGLOBIN 13.7 g/dL (12.0-16.0); LYMPHOCYTES # (AUTO) 1.6 10^3/uL (1.5-3.5); LYMPHOCYTES % (AUTO) 26.2 %; MEAN CORPUSCULAR HEMOGLOBIN 30.6 pg (27.0-31.0); MEAN CORPUSCULAR HGB CONC 34.2 g/dL (32.0-36.0); MEAN CORPUSCULAR VOLUME 89.5 fL (81.0-99.0); MEAN PLATELET VOLUME 10.4 fL (7.9-10.8); MONOCYTES # (AUTO) 0.6 10^3/uL (0.0-1.0); MONOCYTES % (AUTO) 10.6 %; NEUTROPHILS # (AUTO) 3.7 10^3/uL (1.5-6.6); NEUTROPHILS % (AUTO) 61.7 %; PLT - PLATELET COUNT 202 10^3/uL (130-450); RED BLOOD COUNT 4.48 10^6/uL (4.20-5.40); RED CELL DISTRIBUTION WIDTH 12.3 % (12.0-15.0)
[2021-07-07 14:14] LABS: ALBUMIN 4.8 g/dL (3.2-5.5); ALBUMIN/GLOBULIN RATIO 1.7 (1.0-2.2); ALKALINE PHOSPHATASE 52 IU/L (42-121); ALT ALANINE AMINOTRANSFERASE 22 IU/L (10-60); AST ASPARTATE AMINOTRANSFERASE 26 IU/L (10-42); BILIRUBIN,TOTAL 0.9 mg/dL (0.2-1.0); BUN - BLOOD UREA NITROGEN 10 mg/dL (6-20); CALCIUM 9.5 mg/dL (8.5-10.3); CARBON DIOXIDE - CO2 23 mmol/L (21-32); CHLORIDE 107 mmol/L (101-111); CHOL/HDL RATIO 3.6 (<4.4); CHOLESTEROL 196 mg/dL; CREATININE 0.7 mg/dL (0.4-1.0); GFR - MDRD 98 (>89); GLUCOSE 82 mg/dL (70-100); HDL CHOLESTEROL 55 mg/dL; LDL CHOLESTEROL,CALCULATED 127 mg/dL; LDL/HDL RATIO 2.3 (<4.4); POTASSIUM 3.7 mmol/L (3.5-5.0); SODIUM 141 mmol/L (135-145); TOTAL PROTEIN 7.7 g/dL (6.7-8.2); TRIGLYCERIDES 70 mg/dL; VLDL CHOLESTEROL 14 mg/dL
[2021-07-07 14:15] LABS: ESTIMATED AVERAGE GLUCOSE 94 mg/dL (70-100); HEMOGLOBIN A1c% 4.9 % (4.27-6.07)
[2021-07-07 14:25] LABS: THYROID STIMULATING HORMONE 1.55 uIU/mL (0.34-5.60)
--- NOTE | 2021-07-07 16:49 | XRAY Report ---
PROCEDURE: Chest 2 View X-Ray INDICATIONS: DYSPNEA TECHNIQUE: 2 view(s) of the chest. COMPARISON: Prior chest radiograph dated 08/08/2007 FINDINGS: Surgical changes and devices: None. Lungs and pleura: No pleural effusions or pneumothorax. Lungs are clear. Mediastinum: Mediastinal contours are normal. Heart size is normal. Bones and chest wall: No suspicious bony abnormalities. Soft tissues appear unremarkable. IMPRESSION: No acute cardiopulmonary disease. Reviewed by: PILI Jaimes on 07/07/2021 4:48 PM PDT Approved by: Finn Almaraz on 07/07/2021 4:48 PM PDT Station ID: [id number]
== END 2021-07-07 13:12 | disposition home or self-care (01) ==
LOC: DI 13:11
PROVIDERS: ATTEND Registered Nurse
DX: R06.00 Dyspnea, unspecified (principal); R53.83 Other fatigue; Z79.899 Other long term (current) drug therapy
CPT/HCPCS: 36415; 80053; 80061; 83036; 83721; 84443; 85025

== ENCOUNTER 2021-07-16 16:57 | Emergency (ER) | payer MEDICAID ==
[2021-07-16 18:43] LABS: BASOPHILS % (AUTO) 0.3 %; EOSINOPHILS # (AUTO) 0.1 10^3/uL (0.0-0.7); HCT - HEMATOCRIT 38.7 % (37.0-47.0); HGB - HEMOGLOBIN 13.3 g/dL (12.0-16.0); LYMPHOCYTES # (AUTO) 1.5 10^3/uL (1.5-3.5); LYMPHOCYTES % (AUTO) 24.3 %; MEAN CORPUSCULAR HGB CONC 34.4 g/dL (32.0-36.0); MEAN CORPUSCULAR VOLUME 90.2 fL (81.0-99.0); MEAN PLATELET VOLUME 10.4 fL (7.9-10.8); MONOCYTES # (AUTO) 0.8 10^3/uL (0.0-1.0); MONOCYTES % (AUTO) 12.2 %; NEUTROPHILS # (AUTO) 3.8 10^3/uL (1.5-6.6); NEUTROPHILS % (AUTO) 62.2 %; PLT - PLATELET COUNT 197 10^3/uL (130-450); RED BLOOD COUNT 4.29 10^6/uL (4.20-5.40); RED CELL DISTRIBUTION WIDTH 12.4 % (12.0-15.0); WHITE BLOOD COUNT 6.1 x10^3/uL (4.8-10.8)
[2021-07-16 19:00] LABS: ALBUMIN 4.9 g/dL (3.2-5.5); ALBUMIN/GLOBULIN RATIO 1.8 (1.0-2.2); BILIRUBIN,TOTAL 1.1 mg/dL (0.2-1.0); CALCIUM 9.5 mg/dL (8.5-10.3); CREATININE 0.7 mg/dL (0.4-1.0); POTASSIUM 3.5 mmol/L (3.5-5.0); TOTAL PROTEIN 7.7 g/dL (6.7-8.2)
--- NOTE | 2021-07-16 19:08 | ED Physician Documentation ---
History of Present Illness - Stated complaint Stated Complaint: ELEVATED HEART RATE - Chief complaint Chief Complaint: MHE - History obtained from History obtained from: Patient - History of Present Illness Timing: Last night Improved by: nothing Worsened by: no exacerbating symptoms - Additonal information Additional information: c/o noting rapid palpitations correlating with her FitBit indicating heart rates that fluctuate to as high as 150s; she describes these episodes as more frequent at night. She saw a primary care provider earlier today and was advised to skip her adderall today and to increase her seroquel from 25mg to 75mg. She went home and slept for a few hours but upon waking had FitBit reading her heart rate as 150s and thus comes to ED. Denies chest pain, describes mild dyspnea. She also reports insomnia of several days duration Review of Systems Constitutional: denies: Fever, Chills, Sweats Cardiac: reports: Palpitations. denies: Chest pain / pressure, Pedal edema, Calf pain Respiratory: reports: Dyspnea. denies: Cough, Wheezing GI: reports: Reviewed and negative : denies: Now EGA (hysterectomy) Musculoskeletal: reports: Reviewed and negative Neurologic: denies: Headache PD PAST MEDICAL HISTORY - Past Medical History Cardiovascular: None Respiratory: None Neuro: None Endocrine/Autoimmune: Other [employer]: Endometriosis : None Musculoskeletal: Chronic back pain - Past Surgical History Past Surgical History: Yes General: Colonoscopy, EGD Ortho: Other /[employer]: Tubal ligation, Hysterectomy, Other - Present Medications Home Medications: Ambulatory Orders Medication Instructions Recorded Confirmed Albuterol Sulfate [Proair Hfa 1 - 2 puffs INH Q4H PRN 01/29/20 10/27/20 Inhaler] Multivitamin 1 each PO DAILY 04/28/20 10/27/20 Buspirone HCl 10 mg PO DAILY 11/03/20 11/03/20 Digestive 8/L.acidoph/Pectin 1 tab PO DAILY 11/03/20 11/03/20 [Digestive Enzymes Tablet] Liver Rescue 1 each PO DAILY 11/03/20 11/03/20 Ranitidine 150 mg PO DAILY PM 11/03/20 11/03/20 metFORMIN [Glucophage] 500 mg PO DAILY PM 11/03/20 11/03/20 hydrOXYzine pamoate [Hydroxyzine 25 - 50 mg PO Q6HR PRN #20 cap 07/16/21 Pamoate] - Allergies Allergies/Adverse Reactions: Allergies Allergy/AdvReac Type Severity Reaction Status Date / Time drospirenone Allergy Unknown Verified 07/16/21 17:46 [From Gavi (28)] ethinyl estradiol Allergy Unknown Verified 07/16/21 17:46 [From Gavi (28)] lorazepam [From Ativan] Allergy Unknown Verified 07/16/21 17:46 milk Allergy Unknown Verified 07/16/21 17:46 wheat AdvReac Unknown Verified 07/16/21 17:46 - Social History Does the pt smoke?: No Smoking Status: Never smoker PD ED PE NORMAL - Vitals Vital signs reviewed: Yes - General General: Alert and oriented X 3, No acute distress, Well developed/nourished - HEENT HEENT: Moist mucous membranes - Neck Neck: Supple, no meningeal sign - Cardiac Cardiac: No murmur, No gallop, No rub - Respiratory Respiratory: No respiratory distress, Clear bilaterally - Abdomen Abdomen: Soft, Non tender PD ED PE EXPANDED - Cardiac Cardiac: Tachy, Regular Rhythm Results - Vitals Vitals: Vital Signs - 24 hr 07/16/21 07/16/21 07/16/21 17:38 18:13 23:04 Temperature 36.9 C 37.3 C 37.2 C Heart Rate 116 H 110 H 101 H Respiratory 16 19 18 Rate Blood Pressure 136/75 H 116/96 H 115/88 H O2 Saturation 99 100 99 Oxygen O2 Source Room air - EKG (time done) No standard instances Rate: Rate (enter#) (105) Rhythm: NSR [place]: Normal Intervals: Normal [place] QRS: Normal Ischemia: Normal ST segments - Labs Labs: Laboratory Tests 07/16/21 07/16/21 07/16/21 18:37 18:37 18:37 WBC 6.1 RBC 4.29 Hgb 13.3 Hct 38.7 MCV 90.2 MCH 31.0 MCHC 34.4 RDW 12.4 Plt Count 197 MPV 10.4 Neut # (Auto) 3.8 Lymph # (Auto) 1.5 [place] # (Auto) 0.8 Eos # (Auto) 0.1 Baso # (Auto) 0.0 Absolute Nucleated RBC 0.00 Nucleated RBC % 0.0 D-Dimer Sodium 140 Potassium 3.5 Chloride 107 Carbon Dioxide 24 Anion Gap 9.0 BUN 10 Creatinine 0.7 Estimated GFR (MDRD) 98 Glucose 83 Calcium 9.5 Total Bilirubin 1.1 H AST 22 ALT 19 Alkaline Phosphatase 53 Troponin I High Sens < 2.3 L Total Protein 7.7 Albumin 4.9 Globulin 2.8 Albumin/Globulin Ratio 1.8 Lipase 34 TSH 07/16/21 07/16/21 18:37 20:48 WBC RBC Hgb Hct MCV MCH MCHC RDW Plt Count MPV Neut # (Auto) Lymph # (Auto) [place] # (Auto) Eos # (Auto) Baso # (Auto) Absolute Nucleated RBC Nucleated RBC % D-Dimer < 200.0 L Sodium Potassium Chloride Carbon Dioxide Anion Gap BUN Creatinine Estimated GFR (MDRD) Glucose Calcium Total Bilirubin AST ALT Alkaline Phosphatase Troponin I High Sens Total Protein Albumin Globulin Albumin/Globulin Ratio Lipase TSH 2.57 - Rads (name of study) chest xray Radiology: Prelim report reviewed, See rad report PD MEDICAL DECISION MAKING - ED course Complexity details: reviewed results, re-evaluated patient, considered differential, d/w patient ED course: presents with episodic tachycardia and insomnia x several days. Unremarkable blood tests including CBC, abdominal panel, troponin. EKG is ST otherwise no abnormalities. She has normal blood pressure readings although ST noted during most of ED stay. She says anxiety might be playing a role in these episodes. We discussed lorazepam but she says she is allergic and that this causes "restless legs" (per patient). She is given hydroxyzine and on reevaluation she is sleeping but easily awoken. She has brief periods of pulse rate 80s-90s, but mostly 100-110 for most of her stay. Given her reassuring tests and that she is in NAD, further testing, if necessary, can take place in outpatient setting. She is encouraged to return if she feels she is worsening Departure - Departure Disposition: 01 Home, Self Care Clinical Impression: Tachycardia, Insomnia Condition: Good Instructions: ED Insomnia Prescriptions: hydrOXYzine pamoate [Hydroxyzine Pamoate] 25 - 50 mg PO Q6HR PRN #20 cap PRN Reason: Anxiety Comments: Tonight's tests do not reveal nor suggest a cause for your high heart rate. You might need further testing if this persists, but at this time you are safe for discharge home and outpatient follow up (follow up with your primary care provider; call to arrange for next available appointment). Discharge Date/Time: 07/16/21 23:04
[2021-07-16] MEDS ORDERED: hydrOXYzine PAMOATE 25 MG CAPSULE PO STA ×2 (19:20→21:53)
--- NOTE | 2021-07-16 21:04 | XRAY Report ---
PROCEDURE: Chest 2 View X-Ray INDICATIONS: dyspnea, tachycardia TECHNIQUE: 2 view(s) of the chest. COMPARISON: 07/07/2021 FINDINGS: Surgical changes and devices: None. Lungs and pleura: No pleural effusions or pneumothorax. Mildly increased perihilar peribronchial thi ckening bilaterally without dense consolidation. Minor interstitial prominence Mediastinum: Mediastinal contours are normal. Heart size is normal. Bones and chest wall: No suspicious bony abnormalities. Soft tissues appear unremarkable. IMPRESSION: 1. Development of mild bilateral perihilar peribronchial thickening and minor interstitial prominence suggesting bronchitis, reactive airways disease, or viral pneumonitis. Reviewed by: Katarina Talavera MD on 07/16/2021 9:02 PM PDT Approved by: Katarina Talavera MD on 07/16/2021 9:02 PM PDT Station ID: [id number]
[2021-07-16 23:06] VITALS: BP 115/88
== END 2021-07-16 23:04 | disposition home or self-care (01) ==
LOC: ED 16:57
DX: G47.00 Insomnia, unspecified (principal); R00.0 Tachycardia, unspecified
CPT/HCPCS: 36415; 71046; 80053; 83690; 84443; 84484; 85025; 85379; 93005; 99283; 99284; A9270